=== PATIENT | male | born 1980 | race Caucasian/White ===

== ENCOUNTER 2017-03-12 19:30 | Inpatient (IN) | payer MEDICAID ==
[~2017-03-12] VITALS: Ht 182.9 cm; Wt 94.8 kg
[~2017-03-12 19:30] MED LIST: ACET-784; GABA-533
[2017-03-12] MEDS ORDERED: ONDANSETRON HCL 4 MG/2 ML VIAL IVP ONE (19:45)
[2017-03-12] MEDS ORDERED: SODIUM CHLORIDE 0.9% 1,000 ML IV ONE ×2 (19:45→20:30)
[2017-03-12] MEDS ORDERED: MIRT15 PO (19:46)
[2017-03-12 19:59] LABS: BASOPHILS % (AUTO) 0.4 % (0.0-2.0); EOSINOPHILS % (AUTO) 0.9 % (1.0-6.0); HEMATOCRIT 43.6 % (41-53); LYMPHOCYTES # (AUTO) 2.7 K/uL (1.0-4.8); LYMPHOCYTES % (AUTO) 34.5 % (22.0-44.0); MEAN CORPUSCULAR HEMOGLOBIN 31.3 pg (26.0-34.0); MEAN CORPUSCULAR HGB CONC 34.5 G/dL (31.0-37.0); MEAN CORPUSCULAR VOLUME 91 fL (80-100); MONOCYTES # (AUTO) 0.5 K/uL (0.1-1.0); MONOCYTES % (AUTO) 5.9 % (2.0-9.0); NEUTROPHILS # (AUTO) 4.6 K/uL (1.8-7.7); NEUTROPHILS % (AUTO) 58.3 % (40.0-70.0); PLATELET COUNT (AUTO) 242 K/uL (150-450); RED BLOOD CELL COUNT(AUTO) 4.81 MIL/uL (4.50-5.90); RED CELL DISTRIBUTION WIDTH 12.9 % (11.5-14.5)
[2017-03-12 20:09] LABS: CALCIUM, TOTAL 8.3 mg/dL (8.8-10.5); CREATININE 1.58 mg/dL (0.60-1.30)
[2017-03-12 20:16] LABS: BILIRUBIN,TOTAL 0.6 mg/dL (0.1-1.0); TOTAL PROTEIN, SERUM 7.4 g/dL (6.4-8.2)
[2017-03-13] MEDS ORDERED: ACETAMINOPHEN 500 MG TABLET PO ONE (00:45)
[2017-03-13] MEDS ORDERED: HALOPERIDOL 5 MG TABLET PO PRN (02:15)
[2017-03-13] MEDS ORDERED: ZOLPIDEM TARTRATE 10 MG TABLET PO PRN (02:15)
[2017-03-13] MEDS ORDERED: ONDANSETRON HCL 4 MG TABLET PO ONE (07:30)
[2017-03-13 09:45] VITALS: BP 116/74
[2017-03-13 16:13] VITALS: BP 115/49
[2017-03-14 06:33] VITALS: BP 104/60
[2017-03-14] MEDS ORDERED: ACETAMINOPHEN 325 MG TABLET PO PRN (09:30)
[2017-03-14] MEDS ORDERED: IBUPROFEN 600 MG TABLET PO PRN (09:30)
[2017-03-14] MEDS: NICOTINE 21 MG/24 HOUR PATCH TD SCH (09:39)
[2017-03-14] MEDS ORDERED: HYDR-4031 PO (11:05)
[2017-03-14] MEDS ORDERED: GUAN1TAB22 PO (11:05)
[2017-03-14] MEDS: FLUoxetine HCL 20 MG CAPSULE PO SCH (11:33)
[2017-03-14 15:47] VITALS: BP 150/81
[2017-03-14] MEDS ORDERED: LOPERAMIDE HCL 2 MG CAPSULE PO PRN (16:00)
[2017-03-14] MEDS: MIRTAZAPINE 15 MG TABLET PO SCH (20:10)
[2017-03-14 20:21] VITALS: BP 145/99
[2017-03-15 05:48] LABS: ALANINE AMINOTRANSFERASE 54 U/L (12-78); ALBUMIN 3.5 g/dL (3.4-5.0); ANION GAP 8 mmol/L (8-16); ASPARTATE AMINOTRANSFERASE 23 U/L (15-37); BILIRUBIN,TOTAL 2.3 mg/dL (0.1-1.0); CALCIUM, TOTAL 8.9 mg/dL (8.8-10.5); CARBON DIOXIDE 29 mmol/L (22-29); CHLORIDE 103 mmol/L (98-107); CREATININE 1.11 mg/dL (0.60-1.30); GLOMERULAR FILTR. RATE CALC > 60 mL/min (>60); POTASSIUM 3.9 mmol/L (3.5-5.1); SODIUM SERUM 140 mmol/L (136-145); TOTAL PROTEIN, SERUM 7.2 g/dL (6.4-8.2); UREA NITROGEN, BLOOD 13 mg/dL (7-18)
[2017-03-15] MEDS: FLUoxetine HCL 20 MG CAPSULE PO SCH (08:08)
[2017-03-15] MEDS: NICOTINE 21 MG/24 HOUR PATCH TD SCH (08:09)
[2017-03-15] MEDS: LORazepam 2 MG TABLET PO PRN ×2 (08:09→18:53)
[2017-03-15 09:23] VITALS: BP 123/71
[2017-03-15 16:04] VITALS: BP 132/72
[2017-03-15 18:04] VITALS: BP 147/84
[2017-03-15 19:04] VITALS: BP 139/87
[2017-03-15] MEDS: MIRTAZAPINE 15 MG TABLET PO SCH (20:28)
[2017-03-16] MEDS: NICOTINE 21 MG/24 HOUR PATCH TD SCH (09:01)
[2017-03-16] MEDS: FLUoxetine HCL 20 MG CAPSULE PO SCH (09:01)
[2017-03-16] MEDS: LORazepam 2 MG TABLET PO PRN ×3 (09:02→21:14)
[2017-03-16 09:12] VITALS: BP 131/88
[2017-03-16] MEDS: IBUPROFEN 200 MG TABLET PO PRN (09:12)
[2017-03-16 10:31] LABS: HEPATITIS Bs ANTIGEN SCREEN P Negative (Negative); HEPATITIS C AB SCREEN <0.1 s/co ratio (0.0-0.9)
[2017-03-16 17:01] VITALS: BP 137/91
[2017-03-16] MEDS: MIRTAZAPINE 15 MG TABLET PO SCH (21:14)
[2017-03-17 01:28] VITALS: BP 115/67
[2017-03-17] MEDS: FLUoxetine HCL 20 MG CAPSULE PO SCH (08:54)
[2017-03-17] MEDS: NICOTINE 21 MG/24 HOUR PATCH TD SCH (08:54)
[2017-03-17] MEDS: LORazepam 2 MG TABLET PO PRN ×2 (08:55→20:30)
[2017-03-17 09:20] VITALS: BP 124/70
[2017-03-17] MEDS ORDERED: FLUO-191 PO (15:07)
[2017-03-17 16:30] VITALS: BP 124/77
[2017-03-17] MEDS: MIRTAZAPINE 15 MG TABLET PO SCH (20:30)
[2017-03-18] MEDS: FLUoxetine HCL 20 MG CAPSULE PO SCH (09:12)
[2017-03-18] MEDS: LORazepam 2 MG TABLET PO PRN ×3 (09:14→20:23)
[2017-03-18] MEDS: NICOTINE 21 MG/24 HOUR PATCH TD SCH (09:15)
[2017-03-18 11:07] VITALS: BP 139/102
[2017-03-18] MEDS: IBUPROFEN 200 MG TABLET PO PRN (11:07)
[2017-03-18 17:43] VITALS: BP 150/89
[2017-03-18] MEDS: MIRTAZAPINE 15 MG TABLET PO SCH (20:23)
== END 2017-03-19 07:30 | disposition home or self-care (01) | DRG 754 ==
LOC: EMS 19:32 → EDBD 19:32 → AHU 03-13 08:27 → 3EI 03-15 17:30
PROVIDERS: ADMIT Psychiatry & Neurology Child & Adolescent Psychiatry; ATTEND Psychiatry & Neurology Child & Adolescent Psychiatry
DX: F32.9 Major depressive disorder, single episode, unspecified (principal); N17.9 Acute kidney failure, unspecified; I12.9 Hypertensive chronic kidney disease with stage 1 through stage 4 chronic kidney disease, or unspecified chronic kidney disease; F10.229 Alcohol dependence with intoxication, unspecified; F11.90 Opioid use, unspecified, uncomplicated; F17.210 Nicotine dependence, cigarettes, uncomplicated; F43.10 Post-traumatic stress disorder, unspecified; M54.9 Dorsalgia, unspecified; I45.9 Conduction disorder, unspecified; N18.9 Chronic kidney disease, unspecified; G89.29 Other chronic pain; T40.1X2A Poisoning by heroin, intentional self-harm, initial encounter; Y90.7 Blood alcohol level of 200-239 mg/100 ml; Z82.5 Family history of asthma and other chronic lower respiratory diseases; Z91.5 Personal history of self-harm
CPT/HCPCS: 80074; 93005; 96361; 96374; 99291; G0480; J2405; J7030; Q0162

== ENCOUNTER 2017-08-13 06:55 | Emergency (ER) | payer MEDICAID ==
[~2017-08-13] VITALS: Ht 182.9 cm; Wt 100.0 kg
[~2017-08-13 06:55] MED LIST changes: +FLUO-191 PO; +MIRT15 PO
[2017-08-13] MEDS ORDERED: MIRT15 PO (07:07)
[2017-08-13] MEDS ORDERED: QUET100T PO (07:07)
[2017-08-13] MEDS ORDERED: BUSP10TA23 PO (07:07)
[2017-08-13] MEDS ORDERED: SODIUM CHLORIDE 0.9% 1,000 ML IV ONE (08:15)
[2017-08-13] MEDS ORDERED: ONDANSETRON HCL 4 MG/2 ML VIAL IVP ONE (08:15)
[2017-08-13] MEDS ORDERED: PB/HYOSCY/ATR/SCOP/LIDO/MAALOX 55 ML BOTTLE PO ONE (08:15)
[2017-08-13 08:16] VITALS: BP 146/92
[2017-08-13 08:20] LABS: AMPHET/METH SCREEN,URINE NEGATIVE (NEGATIVE); BARBITURATE SCREEN, URINE NEGATIVE (NEGATIVE); BENZODIAZEPINES SCREEN,URINE NEGATIVE (NEGATIVE); CANNABINOID SCREEN,URINE NEGATIVE (NEGATIVE); COCAINE SCREEN,URINE NEGATIVE (NEGATIVE); METHADONE SCREEN, URINE NEGATIVE (NEGATIVE); OPIATE SCREEN,URINE POSITIVE (NEGATIVE)
[2017-08-13 08:21] LABS: PHENCYCLIDINE SCREEN,URINE NEGATIVE (NEGATIVE)
[2017-08-13 09:04] LABS: BASOPHILS % (AUTO) 0.2 % (0.0-2.0); EOSINOPHILS % (AUTO) 0.8 % (1.0-6.0); HEMATOCRIT 43.5 % (41-53); HEMOGLOBIN 15.4 g/dL (13.5-17.5); LYMPHOCYTES # (AUTO) 1.1 K/uL (1.0-4.8); LYMPHOCYTES % (AUTO) 19.8 % (22.0-44.0); MEAN CORPUSCULAR HGB CONC 35.5 G/dL (31.0-37.0); MEAN CORPUSCULAR VOLUME 90 fL (80-100); MONOCYTES # (AUTO) 0.5 K/uL (0.1-1.0); MONOCYTES % (AUTO) 9.9 % (2.0-9.0); NEUTROPHILS # (AUTO) 3.8 K/uL (1.8-7.7); NEUTROPHILS % (AUTO) 69.3 % (40.0-70.0); PLATELET COUNT (AUTO) 194 K/uL (150-450); RED BLOOD CELL COUNT(AUTO) 4.83 MIL/uL (4.50-5.90); RED CELL DISTRIBUTION WIDTH 12.3 % (11.5-14.5)
[2017-08-13 09:09] LABS: ANION GAP 10 mmol/L (8-16); CALCIUM, TOTAL 9.3 mg/dL (8.8-10.5); CARBON DIOXIDE 29 mmol/L (22-29); CHLORIDE 102 mmol/L (98-107); CREATININE 1.12 mg/dL (0.60-1.30); GLOMERULAR FILTR. RATE CALC > 60 mL/min (>60); GLUCOSE,RANDOM 96 mg/dL (70-110); POTASSIUM 3.8 mmol/L (3.5-5.1); SODIUM SERUM 141 mmol/L (136-145); UREA NITROGEN, BLOOD 10 mg/dL (7-18)
[2017-08-13 09:16] LABS: ALANINE AMINOTRANSFERASE 35 U/L (12-78); ALBUMIN 3.8 g/dL (3.4-5.0); ALKALINE PHOSPHATASE 111 U/L (46-116); ASPARTATE AMINOTRANSFERASE 29 U/L (15-37); BILIRUBIN,TOTAL 0.5 mg/dL (0.1-1.0); TOTAL PROTEIN, SERUM 7.9 g/dL (6.4-8.2)
[2017-08-13] MEDS ORDERED: PANTOPRAZOLE SODIUM 40 MG/VIAL IVP ONE (10:30)
== END 2017-08-13 10:38 | disposition home or self-care (01) ==
LOC: EMS 06:57
DX: K21.0 Gastro-esophageal reflux disease with esophagitis (principal); F10.239 Alcohol dependence with withdrawal, unspecified; I10 Essential (primary) hypertension; F17.210 Nicotine dependence, cigarettes, uncomplicated; Y90.0 Blood alcohol level of less than 20 mg/100 ml
CPT/HCPCS: 36415; 80053; 80307; 85025; 96374; 96375; 99284; 99406; C9113; G0480; J2405; J7030; Z7610